=== PATIENT | male | born 1990 | race Caucasian/White ===

== ENCOUNTER 2021-10-31 14:21 | Outpatient (CLI) | payer OTHER, SELFPAY ==
[2021-10-31 14:33] VITALS: BP 145/77; PULSE 82; RESP 16; TEMP 36.7; O2SAT 98; BMI 46.1
[2021-10-31] MEDS: 0.9% Saline Lock 10 ML Syringe IV (14:45)
[2021-10-31 15:36] VITALS: BP 131/85; PULSE 78; RESP 18; TEMP 37.1; O2SAT 97
[2021-10-31 16:31] VITALS: BP 133/82; PULSE 76; RESP 16; TEMP 37.7; O2SAT 99
== END 2021-10-31 23:59 | disposition home or self-care (01) ==
LOC: MS3OUT 14:21 → MS3 14:22
PROVIDERS: Referring Provider Nurse Practitioner Adult Health; Visit Provider Nurse Practitioner Adult Health
DX: U07.1 COVID-19 (principal)
CPT/HCPCS: J7050; M0247; A4216; Q0247